=== PATIENT | female | born 1985 | race Hispanic/Latino ===

== ENCOUNTER 2018-04-13 04:19 | Emergency (ER) | payer MEDICARE ==
[2018-04-13] MEDS ORDERED: ACETAMINOPHEN-CODEINE ELIXIR 5 ML UDCUP ONE (04:27)
[2018-04-13] MEDS ORDERED: OCTYL 2-CYANOACRYLATE 1 EACH TP ONE (04:34)
== END 2018-04-13 04:51 | disposition home or self-care (01) ==
LOC: EDH 04:19
DX: S01.111A Laceration without foreign body of right eyelid and periocular area, initial encounter (principal); F43.10 Post-traumatic stress disorder, unspecified; Z79.899 Other long term (current) drug therapy; Z88.2 Allergy status to sulfonamides; Z72.0 Tobacco use; W22.8XXA Striking against or struck by other objects, initial encounter; Y93.89 Activity, other specified; Y92.098 Other place in other non-institutional residence as the place of occurrence of the external cause; Y99.8 Other external cause status
CPT/HCPCS: 12011